=== PATIENT | female | born 2000 | race Caucasian/White ===

== ENCOUNTER 2022-10-24 15:33 | Emergency (ER) | payer BC, SELFPAY ==
[2022-10-24 15:42] VITALS: BP 136/100; PULSE 88; RESP 16; TEMP 36.6; O2SAT 96
--- NOTE | 2022-10-24 16:29 | ED.GENADULT ---
HPI - General Adult General Chief complaint: Laceration/Wound Stated complaint: Leg Lac Time Seen by Provider: 10/24/22 16:04 History of Present Illness HPI narrative: Patient is 22 white female was helping her family moved some rocks in a trailer and it slipped and cut her left anterior lopez not deep gape slightly it is about 4 cm long. She has had no neurovascular problem bled initially not stop. She has due for a tetanus shot. Past medical history is listed. No allergies to medicine. Related Data Home Medications Medication Instructions Recorded Confirmed No Known Home Medications 10/24/22 10/24/22 Allergies Allergy/AdvReac Type Severity Reaction Status Date / Time No Known Allergies Allergy Verified 10/24/22 15:48 Review of Systems Status of ROS: Reports: 6 or more systems reviewed and unremarkable except as noted in History and below PFSH [facility] Medical History Anxiety and depression ?F41.9 - Anxiety disorder, unspecified (ICD-10) ?F32.A - Depression, unspecified (ICD-10) History of cystic acne (07/09/11) ?Z87.2 - Personal history of diseases of the skin and subcutaneous tissue (ICD-10) Surgical History History of third molar tooth extraction (2017) ?K08.409 - Partial loss of teeth, unspecified cause, unspecified class (ICD-10) History of oral surgery (2011) ?Z98.890 - Other specified postprocedural states (ICD-10) Family History Father Bipolar disorder Paternal Grandmother Breast cancer, Onset Age: 40 Leukemia Maternal Grandmother Breast cancer, Onset Age: 70 Coronary artery disease, Onset Age: 60 Diabetes Maternal Grandfather Diabetes Aunt Diabetes Social History Narrative: exercises two times per week- basketball, running non-smoker rarely consumes alcohol single, college [employer] [facility] Smoking Status: Never smoker Do you use any of these nicotine containing products: None Second hand tobacco smoke exposure: No How often do you have a drink containing alcohol: never AUDIT-C Alcohol total score: 0 Non-prescribed substance use: denies use Little interest or pleasure in doing things: nearly every day Feeling down, depressed, or hopeless: nearly every day service: No Exam Narrative: Exam Narrative: Objective: Patient is in no apparent distress left anterior lopez shows a 4 cm laceration that is widened and avulsed on the base. After sterile scrub The wound was closed with 1% xylocaine wit epinephrine and simple interrupted Ethilon sutures. Good skin edge approximation good hemostasis normal neurovascular function lower extremity after repair. Const: Vital Signs, click to edit/add: Vital Signs - 24 hr 10/24/22 15:42 Temperature 98 F Pulse Rate [Pulse Oximeter] 88 Respiratory Rate 16 Blood Pressure [Ri t Upper Arm] 136/100 H Pulse Oximetry 96 Oxygen Delivery Me thod Room Air Course Vital Signs Vital signs: Initial Vital Signs Temperature 98 F 10/24/22 15:42 Temperature Source Temporal Artery Scan 10/24/22 15:42 Pulse Rate 88 10/24/22 15:42 Pulse Rhythm Regular 10/24/22 15:42 Pulse Strength 3+ Normal 10/24/22 15:42 Respiratory Rate 16 10/24/22 15:42 Blood Pressure 136/100 H 10/24/22 15:42 Blood Pressure Mean 112 H 10/24/22 15:42 Blood Pressure Position Sitting 10/24/22 15:42 Pulse Oximetry 96 10/24/22 15:42 Oxygen Delivery Method Room Air 10/24/22 15:42 Vital Signs Temperature 98 F 10/24/22 15:42 Pulse Rate 88 10/24/22 15:42 Respiratory Rate 16 10/24/22 15:42 Blood Pressure 136/100 H 10/24/22 15:42 Pulse Oximetry 96 10/24/22 15:42 Oxygen Delivery Method Room Air 10/24/22 15:42 Temperature 98 F 10/24/22 15:42 Pulse Rate 88 10/24/22 15:42 Respiratory Rate 16 10/24/22 15:42 Blood Pressure 136/100 H 10/24/22 15:42 Pulse Oximetry 96 10/24/22 15:42 Oxygen Delivery Method Room Air 10/24/22 15:42 Medical Decision Making MDM Narrative Medical decision making narrative: 22-year-old with left anterior lopez laceration closed with sutures simple interrupted fashion. Updated tight Tdap given. I do not think the patient need antibiotics as able scrub the wound clean and sterilized it with a copious solution injected with 1% xylocaine and with epinephrine and closed with 3-0 simple epsilon Ethilon sutures. The patient will get these out about 10 days watch for redness infection, return to ED as needed. Call update primary care as needed. Keep dry keep dry for 48 hours then may shower bathe as normal Discharge Plan Discharge Clinical Impression: Laceration Patient Disposition: Home w/ Parent or Adult Condition: Improved Additional Instructions: Keep dry for 48 hours then may shower bathe as needed. Would stead of [place] water for couple of weeks. Watch for redness or infection. Return to ED or call primary care if any redness or drainage. Suture removal in 10 days. Light use of the leg for the next 10 days until removal of stitches. Activity Level: Light activity Discharge Diet: Regular Prescriptions: No Action No Known Home Medications Follow Up/Referrals: Tran Murray, PRESS TENDER, AGRONOMY PROFESSOR [Primary Care Provider] - Stand Alone Forms: Remind Info Instructions
[2022-10-24] MEDS: TETANUS/DIPHTH/PERTUSSIS 0.5 ML SYRINGE IM (16:43)
== END 2022-10-24 17:22 | disposition home or self-care (01) ==
LOC: ED 16:35
PROVIDERS: Emergency Provider Family Medicine; PCP Nurse Practitioner Family
DX: S81.812A Laceration without foreign body, left lower leg, initial encounter (principal); W01.10XA Fall on same level from slipping, tripping and stumbling with subsequent striking against unspecified object, initial encounter
CPT/HCPCS: 12002; 90471; 90715; 99284

== ENCOUNTER 2023-02-12 13:02 | Outpatient (CLI) | payer BC, SELFPAY | END 2023-02-12 13:03 | disposition home or self-care (01) | PROVIDERS: PCP Nurse Practitioner Family; Visit Provider Physician Assistant | DX: N92.6 Irregular menstruation, unspecified (principal); L68.0 Hirsutism | CPT/HCPCS: 82627; 84146; 84403; 84443 ==

== ENCOUNTER 2023-12-11 10:49 | Outpatient (CLI) | payer BC, SELFPAY | END 2023-12-11 10:50 | disposition home or self-care (01) | PROVIDERS: PCP Internal Medicine; Visit Provider Internal Medicine | DX: M25.50 Pain in unspecified joint (principal); D58.2 Other hemoglobinopathies; I10 Essential (primary) hypertension; E78.5 Hyperlipidemia, unspecified; Z13.9 Encounter for screening, unspecified | CPT/HCPCS: 80053; 86039; 86140; 86200; 86431 ==

== ENCOUNTER 2024-08-25 18:02 | Outpatient (CLI) | payer BC, SELFPAY | END 2024-08-25 18:03 | disposition home or self-care (01) | LOC: NFLDREF 08-28 17:34 | PROVIDERS: PCP Internal Medicine; Referring Provider Internal Medicine; Visit Provider Physician Assistant | DX: N30.00 Acute cystitis without hematuria (principal); B96.20 Unspecified Escherichia coli [E. coli] as the cause of diseases classified elsewhere | CPT/HCPCS: 80053; 80061; 87086 ==

== ENCOUNTER 2024-12-14 17:00 | Outpatient (CLI) | payer BC, SELFPAY ==
--- NOTE | 2024-12-14 16:45 | CRLHL7_ITS ---
For Patients: As a result of the Century Cures Act, medical imaging exams and procedure reports are released immediately into your electronic medical record. You may view this report before your referring provider. If you have questions, please contact your health care provider. Indication: Chronic sinusitis Technique: Noncontrast CT of the paranasal sinuses. Coronal and sagittal reformats. Bone and soft tissue algorithms. Comparison: None Findings: Frontal sinuses: Clear frontal sinuses and recesses. Ethmoid air cells: Clear ethmoid air cells. Sphenoid sinuses: Clear sphenoid sinuses and sphenoethmoidal recesses. Maxillary sinuses: Minor mucosal thickening and small mucous retention cysts in both maxillary sinuses.. Clear ostiomeatal units. Nasal cavity: Smooth 3 mm leftward nasal septal deviation. No nasal cavity masses. Osseous structures: TMJs appear anatomic. No aggressive osseous lesions. No concerning dental disease. No suspicious mastoid or middle ear opacification. Orbits and intracranial structures are unremarkable for technique. IMPRESSION: 1. Minor mucosal thickening and small mucous retention cysts in the maxillary sinuses. 2. Otherwise, grossly clear sinonasal cavities. 3. Smooth 3 mm leftward nasal septal deviation. Please note that all CT scans at this facility use dose modulation, iterative reconstruction, and/or weight-based dosing when appropriate to reduce radiation dose to as low as reasonably achievable. Dictated by Edel Fletcher MD @ 12/15/2024 9:35:04 AM (Electronically Signed)
== END 2024-12-14 17:01 | disposition home or self-care (01) ==
LOC: CT 17:00
PROVIDERS: PCP Internal Medicine; Visit Provider Internal Medicine
DX: J32.9 Chronic sinusitis, unspecified (principal); J34.1 Cyst and mucocele of nose and nasal sinus; J34.2 Deviated nasal septum
CPT/HCPCS: 70486

== ENCOUNTER 2025-04-05 07:03 | Emergency (ER) | payer BC, SELFPAY ==
[2025-04-05 07:22] VITALS: BP 133/99; PULSE 93; RESP 20; TEMP 36.1; O2SAT 97; BMI 34.4
[2025-04-05 07:41] LABS: Appearance Urine Slightly Cloudy (Clear)
[2025-04-05 07:43] LABS: Ur HCG Qualitative* Negative (Negative)
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
--- NOTE | 2025-04-05 08:13 | CRLHL7_ITS ---
For Patients: As a result of the Century Cures Act, medical imaging exams and procedure reports are released immediately into your electronic medical record. You may view this report before your referring provider. If you have questions, please contact your health care provider. INDICATION: Pelvic Pain COMPARISON: None TECHNIQUE: Jesus-scale and color Doppler ultrasound of the uterus and ovaries from a transabdominal and transvaginal approach. Transvaginal ultrasound of the pelvis was performed to better visualize the genitourinary organs, such as the ovaries and/or endometrium. Color-flow and spectral Doppler imaging of both ovaries is performed. FINDINGS: The uterus measures 9.4 x 3.6 x 5.7 cm and demonstrates normal echogenicity. No uterine masses. The endometrial stripe measures 0.1 cm in double thickness. No endometrial masses. Active endometrial shedding was observed during the exam. The cervix is normal. The right ovary measures 3.8 x 1.8 x 3.4 cm. Physiologic appearance without a dominant cystic lesion or solid ovarian / adnexal mass. There is normal arterial and venous color Doppler flow and normal arterial and venous waveforms on duplex Doppler. The left ovary measures 2.5 x 1.5 x 2.1 cm. Physiologic appearance without a dominant cystic lesion or solid ovarian / adnexal mass. There is normal arterial and venous color Doppler flow and normal arterial and venous waveforms on duplex Doppler. No free fluid. IMPRESSION: Unremarkable pelvic ultrasound. Dictated by Devon Larkin MD @ 04/05/2025 9:16:03 AM (Electronically Signed)
[2025-04-05 08:28] LABS: Lactate* 0.9 mmol/L (0.5-1.9)
[2025-04-05] MEDS: ONDANSETRON 2 MG/ML inj 4 MG IVP (08:28)
[2025-04-05 08:42] LABS: Hematocrit* 40.1 % (33.0-51.0); Hemoglobin* 13.1 gm/dL (12.0-16.0); Immature Granulocytes Abs Auto 0.01 K/uL (0.00-0.30); Immature Granulocytes Pct Auto 0.1 %; Lymphocytes Absolute Auto 2.35 K/uL (0.90-2.90); Mean Corpuscular HGB Conc 33 gm/dL (32-36); Mean Corpuscular Hemoglobin 32 pg (26-34); Mean Corpuscular Volume 97 fL (80-100); RDW Coefficient of Variation % 12.1 % (11.5-15.5); Red Blood Count* 4.13 m/uL (4.00-5.20); White Blood Count* 7.83 K/uL (4.50-11.00)
[2025-04-05 08:48] LABS: Chloride* 103 mmol/L (96-114)
[2025-04-05 08:49] LABS: Potassium* 4.5 mmol/L (3.6-5.1); Sodium* 139 mmol/L (135-149)
[2025-04-05 08:51] LABS: Blood Urea Nitrogen* 11 mg/dL (5-24); Creatinine* 0.7 mg/dL (0.5-1.5); Est. Creatinine Clearance* 134.01; Estimated Glomerular Filt Rate 124 ml/min; Slide Review Reflex No
[2025-04-05 08:52] LABS: Anion Gap 11 mEq/L (7-15); Calcium* 8.5 mg/dL (8.4-10.6); Carbon Dioxide* 25 mmol/L (20-32); Glucose* 99 mg/dL (60-115)
[2025-04-05 09:02] VITALS: BP 110/80; PULSE 58; RESP 16; TEMP 36.6; O2SAT 100
== END 2025-04-05 10:00 | disposition home or self-care (01) ==
PROVIDERS: Emergency Provider Family Medicine; PCP Internal Medicine
DX: N94.6 Dysmenorrhea, unspecified (principal)
CPT/HCPCS: 36415; 76830; 76856; 80048; 81001; 81025; 83605; 83690; 85025; 86140; 87086; 87186; 93976; 96374; 96375; 99284; J1885; J2405

== ENCOUNTER 2025-04-12 14:29 | Outpatient (CLI) | payer BC, SELFPAY ==
[2025-04-12 20:55] LABS: Chlamydia DNA Amplified* NOT DETECTED (No Detected); GC DNA Amplified* NOT DETECTED (No Detected)
== END 2025-04-12 14:30 | disposition home or self-care (01) ==
LOC: NFLDREF 14:30
PROVIDERS: PCP Internal Medicine; Visit Provider Obstetrics & Gynecology
DX: N89.8 Other specified noninflammatory disorders of vagina (principal); R10.20 Pelvic and perineal pain unspecified side
CPT/HCPCS: 87491; 87591